=== PATIENT | male | born 1955 | race Caucasian/White ===

== ENCOUNTER → 2023-01-07 | Outpatient (CLI) | payer MEDICARE | LOC: ORTHO 09:09 | PROVIDERS: ATTEND Orthopaedic Surgery | DX: M75.102 Unspecified rotator cuff tear or rupture of left shoulder, not specified as traumatic (principal); M75.22 Bicipital tendinitis, left shoulder | CPT/HCPCS: 99213 ==

== ENCOUNTER → 2023-02-06 | Outpatient (CLI) | payer MEDICARE | LOC: ORTHO 09:18 | PROVIDERS: ATTEND Orthopaedic Surgery | DX: M75.102 Unspecified rotator cuff tear or rupture of left shoulder, not specified as traumatic (principal) | CPT/HCPCS: 99213 ==

== ENCOUNTER 2023-02-14 05:31 | Outpatient (CLI) | payer MEDICARE ==
[~2023-02-14] VITALS: Ht 180.3 cm; Wt 126.6 kg
[2023-02-14] MEDS ORDERED: ERGO400C PO (10:24)
[2023-02-14] MEDS ORDERED: MULT-1136 PO (10:24)
[2023-02-14] MEDS ORDERED: BIOT10004 PO (10:24)
[2023-02-14] MEDS ORDERED: ATOR80TA76 PO (10:24)
[2023-02-14] MEDS ORDERED: DAPA10TA PO (10:24)
[2023-02-14] MEDS ORDERED: ASPI-999 PO (10:24)
[2023-02-14] MEDS ORDERED: UBID100C7 PO (10:24)
[2023-02-14] MEDS ORDERED: FOLI0.4T6 PO (10:24)
[2023-02-14] MEDS ORDERED: OMEG100032 PO (10:24)
[2023-02-14] MEDS ORDERED: ALLO300T2 PO (10:24)
[2023-02-14] MEDS ORDERED: GLIP10TA13 PO (10:24)
[2023-02-14] MEDS ORDERED: TIOT4MIS2 IH (10:24)
[2023-02-14] MEDS ORDERED: AMLO-251 PO (10:24)
[2023-02-14] MEDS ORDERED: RT-ALBUINH INH (10:24)
[2023-02-14] MEDS ORDERED: METF-397 PO (10:24)
[2023-02-14] MEDS ORDERED: CINN500C2 PO (10:24)
== END 2023-02-14 10:28 | disposition home or self-care (01) ==
LOC: PREOP 05:31
PROVIDERS: ATTEND Orthopaedic Surgery
DX: Z01.818 Encounter for other preprocedural examination (principal); M75.102 Unspecified rotator cuff tear or rupture of left shoulder, not specified as traumatic

== ENCOUNTER 2023-02-21 08:08 | Day surgery (SDC) | payer MEDICARE ==
[~2023-02-21] VITALS: Ht 180.3 cm; Wt 126.6 kg
[2023-02-21] VITALS (11 sets, daily range): BP systolic 136–194; BP diastolic 66–102
[~2023-02-21 08:08] MED LIST: ALLO300T2 PO; AMLO-251 PO; ASPI-999 PO; ATOR80TA76 PO; BIOT10004 PO; CINN500C2 PO; DAPA10TA PO; ERGO400C PO; FOLI0.4T6 PO; GLIP10TA13 PO; METF-397 PO; MULT-1136 PO; OMEG100032 PO; RT-ALBUINH INH; TIOT4MIS2 IH; UBID100C7 PO
[2023-02-21] MEDS: LACTATED RINGERS 1,000 ML IV PRN ×2 (09:27→11:34)
[2023-02-21] MEDS ORDERED: ceFAZolin INJECTION 2,000 MG in NS (IVPB) 50 ML IV ONE (09:30)
[2023-02-21] MEDS ORDERED: EPINEPHrine INJECTION 1 MG/ML AMP ONE ×3 (09:40→10:05)
--- NOTE | 2023-02-21 10:28 | Progress Note-Pre Operative ---
Pre-Operative Progress Note Date of Available H&P: Feb 06, 2023 Date H&P Reviewed: Feb 21, 2023 Time H&P Reviewed: 10:20 History & Physical: H&P Reviewed, Patient Examed, No changes noted Pre-Operative Diagnosis: Left Shoulder Rotator Cuff Tear KORIN QUICK MD Feb 21, 2023 10:28
[2023-02-21] MEDS ORDERED: MIDAZOLAM 2 MG/2 ML (VERSED) VIAL ONE (10:30)
[2023-02-21] MEDS ORDERED: SEVOFLURANE (ULTANE) 15 ML INHAL SOLN ONE ×2 (10:30→12:18)
[2023-02-21] MEDS ORDERED: fentaNYL INJ 100 MCG/2 ML AMP ONE ×2 (10:30→11:28)
[2023-02-21] MEDS ORDERED: ONDANSETRON 4 MG/2 ML (SDV) Z0FRAN ONE (10:30)
[2023-02-21] MEDS ORDERED: proPOfol 200 MG/20 ML (DIPRIVAN) VIAL IV ONE (10:30)
[2023-02-21] MEDS ORDERED: LIDOCAINE PF 2% 5 ML (XYLOCAINE) VIAL ONE (10:30)
[2023-02-21] MEDS ORDERED: HYDROmorphone 2 MG/ML VIAL (DILAUDID) ONE (10:54)
[2023-02-21] MEDS ORDERED: ROCURONIUM 50 MG/5 ML (ZEMURON) VIAL IV ONE ×2 (11:29→12:14)
[2023-02-21] MEDS ORDERED: EPINEPHrine INJECTION 1 MG/ML AMP IR ONE (11:46)
[2023-02-21] MEDS ORDERED: KETOROLAC 30 MG/ML VIAL ONE (12:15)
--- NOTE | 2023-02-21 12:23 | Operative Report - Ortho ---
Operative Report Surgeon (s)/Grit Blaster (s) Surgeon KORIN QUICK MD Grit Blaster n/a Pre-Operative Diagnosis Left Shoulder Rotator Cuff Tear Post-Operative Diagnosis same Operative Report Date of Procedure: Feb 21, 2023 Name of Procedure Performed: Left Shoulder Arthroscopy with Rotator Cuff Repair Description & Findings After obtaining informed consent and marking the patient in the preoperative holding area, patient received regional anesthesia. Patient did receive intravenous antibiotics. Patient was taken to the operating room. General anesthesia was induced and the patient was placed in the lateral decubitus position with the right side up. Left upper extremity was prepped and draped in the usual sterile fashion. Surgical timeout was taken. Posterior portal was established. Diagnostic glenohumeral arthroscopy was performed with the following findings: biceps tendon intact, intact articular cartilage, no loose bodies in the axillary pouch, incomplete tear of the rotator cuff with articular sided fibers intact, some degenerative fraying of the labrum. Anterior portal was established and shaver was inserted. The undersurface of the cuff tear and the labrum were debrided to stable borders. Marking suture was placed. Instruments were then taken up into the subacromial space. Lateral portal was established. Shaver was used to remove bursal tissue. Marking suture was identified and rotator cuff tear was completed. Rotator cuff footprint was debrided to bleeding bone. Edge of the rotator cuff was debrided. Two medial row anchors were then placed. Tape sutures from each anchor were passed through the cuff using a needle suture passer and a loop suture. One limb from each medial anchor was then taken to the lateral portal. A punch was used to make a socket for a lateral row anchor. One limb from each medial row anchor were then passed through the lateral row anchor. The anchor was seated by hand and the sutures were tensioned. The second part of the anchor was then deployed by hand. Tails of the suture were cut. A second lateral row anchor was then placed posterior to the first with final 2 limbs of suture; punched, seated by hand, tension, and then deployed. Tails were cut. Rotator cuff repair was viewed from the posterior and lateral portals and demonstrated good approximation and compression to the footprint. Instruments were removed. Incisions were closed with 3-0 nylon sutures. Wounds were dressed with xeroform, 4x4s, ABD, and tape. Patient was placed in an abduction sling postoperatively. Anesthesia Type General plus regional Estimated Blood Loss minimal Specimen(s) collected/removed None KORIN QUICK MD Feb 21, 2023 12:23
[2023-02-21] MEDS ORDERED: OXC5T PO (12:25)
[2023-02-21] MEDS ORDERED: LABETALOL HCL 20 MG/4 ML VIAL ONE (12:53)
[2023-02-21] MEDS ORDERED: ONDANSETRON 4 MG/2 ML (SDV) Z0FRAN IVP PRN (13:00)
[2023-02-21] MEDS ORDERED: HYDROmorphone 2 MG/ML VIAL (DILAUDID) IV ONE (13:00)
--- NOTE | 2023-02-21 14:22 | Anesthesia-General Post-Op ---
General Patient Condition Mental Status/LOC: Same as Preop Cardiovascular: Satisfactory Nausea/Vomiting: Absent Respiratory: Satisfactory Pain: Controlled Complications: Absent Post Op Complications Complications None Follow Up Care/Instructions Patient Instructions None needed. Anesthesia/Patient Condition Patient Condition Patient is doing well, no complaints, stable vital signs, no apparent adverse anesthesia problems. No complications reported per nursing. D/C home per [facility] Criteria: Yes XAVIER MARQUEZ CRNA Feb 21, 2023 14:22
== END 2023-02-21 15:00 | disposition home or self-care (01) ==
LOC: SDC 08:08
PROVIDERS: ATTEND Orthopaedic Surgery
DX: M75.102 Unspecified rotator cuff tear or rupture of left shoulder, not specified as traumatic (principal); E66.01 Morbid (severe) obesity due to excess calories; Z68.38 Body mass index [BMI] 38.0-38.9, adult
CPT/HCPCS: 29827; 82947; 87081; C1713 ×2

== ENCOUNTER → 2023-03-06 | Outpatient (CLI) | payer MEDICARE ==
[~2023-03-06] MED LIST changes: +OXC5T PO
== END ==
LOC: ORTHO 09:36
PROVIDERS: ATTEND Orthopaedic Surgery
DX: Z98.890 Other specified postprocedural states (principal)

== ENCOUNTER → 2023-03-27 | Outpatient (CLI) | payer MEDICARE | LOC: ORTHO 09:06 | PROVIDERS: ATTEND Orthopaedic Surgery | DX: Z47.89 Encounter for other orthopedic aftercare (principal) ==

== ENCOUNTER → 2023-04-29 | Outpatient (CLI) | payer MEDICARE | LOC: ORTHO 08:46 | PROVIDERS: ATTEND Orthopaedic Surgery | DX: Z47.89 Encounter for other orthopedic aftercare (principal) ==

== ENCOUNTER → 2023-07-01 | Outpatient (CLI) | payer MEDICARE | LOC: ORTHO 08:49 | PROVIDERS: ATTEND Orthopaedic Surgery | DX: Z98.890 Other specified postprocedural states (principal) | CPT/HCPCS: 99213 ==